=== PATIENT | male | born 1935 | race Caucasian/White ===

== ENCOUNTER 2016-07-09 08:54 | Observation (INO) | payer BLACK LUNG, MEDICARE, OTHER ==
[~2016-07-09] VITALS: Ht 185.4 cm; Wt 108.1 kg
[~2016-07-09 08:54] MED LIST: ALLEGRA ALLERG180 MG PO; AZELASTINE137 MCG/0. NS; DUONEB 2.5-0.5MG3 ML NEB; HUMULIN N100 UNIT/1 SQ; HUMULIN R100 UNIT/1 IJ; HYDROCHLOROTH12.5 MG PO; HYDROCODON-ACE1 EAC4 PO; HYTRIN1 MG PO; LEVAQUIN500 MG PO; LIPITOR40 MG PO; LISINOPRIL10 MG PO; LYRICA100 MG PO; METOPROLOL TART25 MG PO; MIRALAX17 GM PO; OMEPRAZOLE20 MG PO; PREDNISONE10 MG PO; RESTORIL30 MG PO; SINGULAIR10 MG PO; XANAX0.25 MG PO; XARELTO20 MG PO
[2016-07-09 10:02] LABS: BASO % 0.3 % (0.2-1.2); EOS # 0.2 10_X3_uL (0.0-0.5); EOS % 3.1 % (0.8-7.0); GRAN # 3.5 10_X3_uL (1.8-5.4); HEMATOCRIT 33.7 % (40-51); HEMOGLOBIN 10.8 g/dL (13.7-17.5); LYMPH # 1.3 10_X3_uL (1.3-3.6); LYMPH % 22.8 % (21.8-53.1); MONO # 0.8 10_X3_uL (0.3-0.8); MONO % 13.8 % (5.3-12.2); PLATELET COUNT 151 x10_3/uL (163-337); RED BLOOD COUNT 4.32 x10_6/uL (4.6-6.1); RED CELL DISTRIBUTION WIDTH 14.9 % (11.6-14.4); WHITE BLOOD COUNT 5.9 x10_3/uL (4.2-9.1)
[2016-07-09 10:10] LABS: CKMB 2.3 ng/ml (0.0-5.0)
[2016-07-09 10:13] LABS: BLOOD UREA NITROGEN 9 mg/dL (7-18); CALCIUM 8.2 mg/dL (8.7-10.7); CARBON DIOXIDE 24 mmol/L (21-32); CREATINE KINASE 62 U/L (35-232); CREATININE 0.9 mg/dL (0.6-1.3); GLUCOSE,RANDOM 69 mg/dL (70-99); POTASSIUM 3.9 mmol/L (3.5-5.1); SODIUM 137 mmol/L (136-145)
[2016-07-09 10:16] LABS: TROP-I < 0.30 NG/ML (0.00-0.30)
[2016-07-10 07:30] LABS: AHDL CHOLESTEROL 50 mg/dL (>40); ALBUMIN 3.5 gm/dL (3.4-5.0); ALKALINE PHOSPHATASE 104 U/L (50-136); ALT/SGPT 9 U/L (7.53-40.17); AST/SGOT 13 U/L (6.66-35.34); BLOOD UREA NITROGEN 12 mg/dL (7-18); CALCIUM 8.6 mg/dL (8.7-10.7); CARBON DIOXIDE 22 mmol/L (21-32); CHOLESTEROL 93 mg/dL (0-200); CREATININE 0.8 mg/dL (0.6-1.3); GLUCOSE,RANDOM 245 mg/dL (70-99); LDL CHOLESTEROL 39 mg/dL (0-99); POTASSIUM 4.4 mmol/L (3.5-5.1); SODIUM 136 mmol/L (136-145); TOTAL PROTEIN 7.3 gm/dL (6.4-8.2); TRIGLYCERIDES 33 mg/dL (30-200)
[2016-07-11 07:27] LABS: HEMATOCRIT 33.9 % (40-51); HEMOGLOBIN 10.9 g/dL (13.7-17.5); MEAN CORPUSCULAR HEMOGLOBIN 24.9 pg (27.0-33.0); MEAN CORPUSCULAR HGB CONC 32.2 g/dL (32.0-36.0); MEAN CORPUSCULAR VOLUME 77.4 fL (79-92); MEAN PLATELET VOLUME 11.7 fl (7.5-11.5); RED BLOOD COUNT 4.38 x10_6/uL (4.6-6.1); RED CELL DISTRIBUTION WIDTH 15.3 % (11.6-14.4); WHITE BLOOD COUNT 9.7 x10_3/uL (4.2-9.1)
[2016-07-11 07:50] LABS: CALCIUM 8.4 mg/dL (8.7-10.7); CARBON DIOXIDE 24 mmol/L (21-32); CREATININE 0.9 mg/dL (0.6-1.3); GLUCOSE,RANDOM 281 mg/dL (70-99); POTASSIUM 4.8 mmol/L (3.5-5.1); SODIUM 138 mmol/L (136-145)
[2016-07-11 07:57] LABS: BLOOD UREA NITROGEN 22 mg/dL (7-18)
== END 2016-07-11 10:50 | disposition home or self-care (01) ==
LOC: MS 08:54
PROVIDERS: ADMIT Family Medicine
DX: J44.0 Chronic obstructive pulmonary disease with (acute) lower respiratory infection (principal); J20.9 Acute bronchitis, unspecified; J44.1 Chronic obstructive pulmonary disease with (acute) exacerbation; J60 Coalworker's pneumoconiosis; I10 Essential (primary) hypertension; E11.9 Type 2 diabetes mellitus without complications; Z80.9 Family history of malignant neoplasm, unspecified; Z82.49 Family history of ischemic heart disease and other diseases of the circulatory system; N40.0 Benign prostatic hyperplasia without lower urinary tract symptoms; Z88.2 Allergy status to sulfonamides; Z91.041 Radiographic dye allergy status; Z79.899 Other long term (current) drug therapy; Z79.02 Long term (current) use of antithrombotics/antiplatelets; Z79.4 Long term (current) use of insulin
CPT/HCPCS: 36415; 71020; 80048; 80053; 80061; 82550; 82553; 82962; 83036; 85025; 86738; 87040; 87070; 87205; 94640; 94664; 96365; 96366; 96367; 96375; 96376; 99070; G0378; J2930